=== PATIENT | female | born 1985 | race Caucasian/White ===

== ENCOUNTER 2016-06-30 10:14 | Emergency (ER) | payer SELFPAY ==
[~2016-06-30] VITALS: Ht 152.4 cm; Wt 59.0 kg
== END 2016-06-30 11:30 | disposition short-term general hospital (02) ==
LOC: ER 10:14
DX: S30.0XXA Contusion of lower back and pelvis, initial encounter (principal); W10.9XXA Fall (on) (from) unspecified stairs and steps, initial encounter; Z88.8 Allergy status to other drugs, medicaments and biological substances